=== PATIENT | female | born 1950 | race Caucasian/White ===

== ENCOUNTER → 2017-08-16 10:34 | Outpatient (CLI) | payer OTHER, SELFPAY ==
--- NOTE | 2017-08-16 10:53 | DI.CT.S_ITS ---
PROCEDURE: CT CHEST ABD PEL W CON INDICATIONS: follow up lymphocytic leukemia b-cell TECHNIQUE: After the administration of oral and intravenous contrast, 5 mm thick sections acquired from the lung apices to the symphysis. 5 mm coronal and sagittal reformats were performed, with additional 7 mm coronal MIP reformats through the lungs. For radiation dose reduction, the following was used: automated exposure control, adjustment of mA and/or kV according to patient size. COMPARISON: [facility], CT, CT SOFT TISSUE NECK W CON, 08/16/2017, 11:35. There is no prior CT examinations are available for review at the time of this dictation an5 FINDINGS: Image quality: Excellent. CHEST: Lungs and pleura: No acute airspace opacities. No pleural effusions or pneumothorax. Central and peripheral airways appear patent and normal in caliber. Mediastinum: Heart size is normal. No pericardial effusion. No mediastinal or hilar adenopathy by size criteria. Thoracic aorta and central pulmonary arteries are normal in size. Esophagus is normal in caliber. No hiatal hernia. Chest wall: No enlarged supraclavicular lymph nodes are seen. There is a borderline prominent with left axillary lymph node measuring 9 mm in short axis, as on series 2 image 19. Thyroid gland demonstrates no significant CT abnormality. ABDOMEN: Solid organs: Liver is normal in size and enhancement. Gallbladder is partially collapsed at the time of this study. Biliary system is non dilated. Pancreas enhances normally. The spleen is mildly enlarged, measuring 13.9 cm in greatest craniocaudal dimension. No focal splenic lesions are seen. No adrenal nodules. Kidneys demonstrate normal size and enhancement. There is mild to moderate right-sided hydronephrosis and hydroureter. Because of hydronephrosis and hydroureter is not identified. Nonobstructing right-sided kidneys stones are seen that measure up to 4 mm. Peritoneum and bowel: Bowel loops demonstrate normal wall thickness and caliber. No free fluid or air. Nodes and vessels: No retroperitoneal or mesenteric adenopathy by size criteria. Aorta and inferior vena cava are normal in size. Prominence of both canal veins can be seen. Miscellaneous: No ventral hernias. PELVIS: Genitourinary: Bladder wall thickness is normal. Miscellaneous: No inguinal hernias or adenopathy. Bones: No suspicious bony lesions. No vertebral body compression fractures. Bilateral L5 pars defects are seen, with grade 1/2 anterolisthesis at L5-S1. Moderate to severe loss of disc height is seen at L5-S1, with associated remodeling change. IMPRESSION: No enlarged lymph nodes are seen, although a borderline prominent right axillary lymph node can be seen. Mild splenomegaly is seen. [id number] right-sided hydronephrosis and hydroureter. A cause of this process is not seen. Incidental note is made of: Right kidney nonobstructing kidney stones, measuring up to 4 mm. L5 pars defects, with associated grade 1/2 anterolisthesis at L5-S1, with moderate to severe loss of disc height and remodeling changes. Prominent gonadal veins Dictated by: Esteban Tucker M.D. on 08/16/2017 at 11:54 Approved by: Esteban Tucker M.D. on 08/16/2017 at 12:06
[2017-08-16 11:01] LABS: Hematocrit 37.9 % (36-46); Mean Corpuscular HGB Conc 31.7 % (30-36); Platelet Count 129 X10^3/uL (150-400); Red Blood Cell Count 3.87 X10^6/uL (4.0-5.2); Red Cell Distribution Width 14.6 % (11.6-14.8)
[2017-08-16 11:07] LABS: Alanine Aminotransferase 30 IU/L (9-52); Albumin 4.3 g/dL (3.5-5.0); Alkaline Phosphatase 51 U/L (38-126); Aspartate Aminotransferase 30 IU/L (14-36); BUN Creatinine Ratio 31.7 (6-22); Bilirubin Total 0.4 mg/dL (0.2-1.3); Blood Urea Nitrogen 19 mg/dL (7-17); Calcium 9.1 mg/dL (8.4-10.2); Carbon Dioxide 30 mmol/L (22-32); Chloride 105 mmol/L (98-107); Estimated Glomerular Filt Rate > 60.0 mL/min (>60); Globulin 2.1 g/dL (1.7-4.1); Glucose 75 mg/dL (80-110); HEMOLYSIS < 15 (0-50); Potassium 5.1 mmol/L (3.4-5.1); Sodium 143 mmol/L (137-145); Total Protein 6.4 g/dL (6.3-8.2)
[2017-08-16 11:13] LABS: Add Manual Diff / Slide Review YES; White Blood Cell Count 94.8 X10^3/uL (4.5-11.0)
--- NOTE | 2017-08-16 11:13 | PC.NURSE ---
cv wbc 94.8 per alsi, results to triage
--- NOTE | 2017-08-16 11:46 | PC.NURSE ---
Critical value WBC 94.1 noted. Pt sees Corine on 08/19. Lab results placed in Corine's box for review.
--- NOTE | 2017-08-16 11:51 | DI.CT.S_ITS ---
PROCEDURE: CT SOFT TISSUE NECK W CON INDICATIONS: lymphocytic leukemia follow up TECHNIQUE: After the administration of intravenous contrast, 3.0 mm axial sections acquired from the sella to the aortic arch. Additional oblique axial 3.0 mm sections acquired through the pharynx. 3 mm thick coronal and sagittal reformats were generated. For radiation dose reduction, the following was used: automated exposure control. COMPARISON: [facility], CT, HEAD W&WO CONTRAST, 05/29/2015, 15:01. [facility], CT, CT CHEST ABD PEL W CON, 08/16/2017, 11:35. No prior neck CT examinations are available for review at the time of this dictation. FINDINGS: Image quality: Excellent. Lymph nodes: Numerous mildly enlarged lymph nodes are seen throughout the neck. The largest solitary lymph node is seen on the right at level IIA measuring 13 x 10 mm in greatest axial dimension. Vessels: Visualized vasculature appears patent. Neck spaces: The oropharynx, nasopharynx, and pharynx demonstrate no mucosal lesions. The vocal cords, false vocal cords, pyriform sinuses, epiglottis, vallecula, and tongue base all appear normal. Extramucosal spaces appear unremarkable. Glands: The parotid and submandibular glands appear normal. Thyroid gland demonstrates no significant CT abnormality. Miscellaneous: Visualized brain and orbits appear normal. Lung apices appear clear. Superficial soft tissues appear normal. Bones: No suspicious bony lesions. Visualized sinuses and mastoids appear unremarkable. Degenerative changes are seen throughout, which are most prominent involving the lower cervical spine. IMPRESSION: Innumerable mildly enlarged lymph nodes are seen throughout the neck. The largest solitary lymph node can be seen within the right neck at level IIA, which measures up to 10 mm in short axis. The imaging findings are compatible with the given clinical history of leukemia. Dictated by: Esteban Tucker M.D. on 08/16/2017 at 13:13 Approved by: Esteban Tucker M.D. on 08/16/2017 at 13:16
[2017-08-16 13:45] LABS: Neutrophils Absolute Manual 1896 /uL (3000-5900); Reactive Lymphocytes 2+; Total Cells Counted 100
[2017-08-16 13:46] LABS: Smudge Cells 4+
== END ==
PROVIDERS: Family Provider Physician Assistant; PCP Physician Assistant; Visit Provider Nurse Practitioner Gerontology
DX: R59.1 Generalized enlarged lymph nodes (principal); C91.Z0 Other lymphoid leukemia not having achieved remission; R16.1 Splenomegaly, not elsewhere classified; N13.30 Unspecified hydronephrosis; N20.0 Calculus of kidney
CPT/HCPCS: 36415; 70491; 71260; 74177; 80053; 85025; Q9967

== ENCOUNTER 2017-11-04 11:30 | Oncology outpatient (ONC) | payer OTHER, SELFPAY ==
--- NOTE | 2017-08-19 12:48 | ONC.APRN.PN ---
Assessment and Plan (1) CLL (chronic lymphocytic leukemia) Current visit: No Status: Chronic 08/19/17 16:47 Lupis is a 67-year-old female whom we follow for a diagnosis of CLL in clinical surveillance for more than 2 years. Good prognostic indicator with 13q deletion. Clinically she has no signs or symptoms of disease progression. CT scan of chest abdomen pelvis August 16, 2017 demonstrated mildly enlarged spleen at 13.9cm. No previous scans for comparison. Soft tissue neck CT august 16 2017 demonstrated mildly enlarged lymph node throughout the neck, largest measuring [id number]. Also no comparison however historically on previous exams she has had palpable lymph nodes in her neck. Per patient report these have not changed whatsoever in size, she states they tend to come and go. The patient is quite thin, easy to examine. Today her submanidibular nodes were palpable, symmetric, nontender, soft, freely moveable. Very consistent with previous exams. Patient has no red flag symptoms. I will have her return in 3 months time for repeat exam cbc cmp LDH. Continue to monitor for palpable splenomegaly. CBC is within the patient's baseline [place] [address] improved from previous , has been in the low 100,000's. Lymphocytes 97%, platelets 129,000.CMP unremarkable, LDH was not procured we will repeat next visit i have ordered LDH in computer. 08/19/17 16:50 - Time Spent with Patient 35 mins PN -Subjective Interval history: The patient is a 67 year old Female who is being seen in the clinic 08/19/2017 She carries a diagnosis of chronic lymphocytic leukemia in surveillance only since her diagnosis was made in June 2015. Patient has a deletion 13q which is a good prognostic indicator. Patient presents today for her 3 month clinical evaluation. She had surveillance CT scan of neck, chest, abdomen, pelvis August 16, 2017 which did not demonstrate any evidence of disease progression although spleen was mildly enlarged at 13.9cm. No prior imaging available. She does have chronically mildly enlarged lymph nodes on exam, also demonstrated on soft tissue neck CT with the largest measuring 10 mm. Historically these have also been palpable on exam. Patient has no new complaints whatsoever on exam today. She does check her lymph nodes she states they go up and down, they get a bit bigger with a cold or sinus infection but go right back down. She has not had any recent or recurrent illnesses or infections. No change in appetite specifically no early satiety. No unexplained bleeding or bruising. No change with activity tolerance. She denies night sweats. Bowel and bladder habits are unchanged. No new pain, no new lumps or bumps. Chronic dizziness for the past few years is unchanged, she now uses walking sticks when exercising which has been helpful. TIMELINE: She was diagnosed in June 2015 after presenting with an acute illness with vertigo and upper respiratory symptoms discovered to have an elevated lymphocyte count of 118,000 with 75% mature lymphocytes, 19% atypical lymphocytes with thrombocytopenia 135,000 AB 0; one baby shortly after 6 healthy adult children she sanders surgery on her gingiva varicose vein surgery episiotomy history of tubal ligation she reports a history of sleep apnea; not using CPAP. Home Medications and Allergies Home Medications Medication Instructions Recorded Confirmed Type magnesium oxide 400 mg PO #0 10/31/15 07/02/17 History ACETAMINOPHEN 325 mg PO PRN PRN #0 07/06/16 07/02/17 History VITAMIN D (Vitamin D3) 1,000 unit PO QDAY #0 07/06/16 07/02/17 History biotin 5,000 mcg PO QDAY #0 05/19/17 07/02/17 History vitamin B complex [B 1 tab PO QDAY #0 05/19/17 07/02/17 History Complex-Vitamin B12] [Tetanus/Diptheria] 1 ea #0 06/23/17 07/02/17 Rx Allergies Allergy/AdvReac Type Severity Reaction Status Date / Time Sulfa (Sulfonamide Allergy Unknown Verified 07/02/17 10:06 Antibiotics) [SULFA (SULFONAMIDE ANTIBIOTICS)] soy Allergy Abdominal Verified 07/02/17 10:06 Pain Exam Narrative: well appearing - Constitutional positive no acute distress, positive thin - Routine HEENT Exam Head: Present: normocephalic, atraumatic Eye: Present: conjunctivae pink. Absent: conjunctival icterus, scleral injection ENT: Present: mucous membranes moist - Routine Neck Exam Present: supple, lymphadenopathy Comments: pt is thin very easy to examine. Submandibular nodes are palpable, soft, freely moveable, symmetric. Very small, not alarming in a thin easy to examine pt correlates with previous exams. Unable to palpate parotid, submental, cervical lymph nodes. - Routine Chest/Breast/Axilla Exam Chest wall exam standard: Absent: tenderness, mass Axillae: Absent: lymphadenopathy, mass, tenderness - Routine Respiratory Exam Present: Clear to auscultation bilaterally. Absent: rales, rhonchi, wheezes - Routine Cardiovascular Exam Present: RRR, S1, S2 - Routine Abdominal Exam Present: soft, normoactive bowel sounds. Absent: tenderness, distended, organomegaly, mass Palpation/Percussion: Absent: splenomegaly, dullness to percussion Comments: spleen not palpable on exam today - Routine Extremities Exam Absent: edema, calf tenderness - Routine Skin Exam Present: intact, normal turgor. Absent: petechiae, rash - Routine Neurological Exam Present: alert, oriented X3 - Routine Psychiatric Exam Present: normal affect
[2017-08-19 14:28] VITALS: BP 134/68; PULSE 67; RESP 18; TEMP 36.3; O2SAT 98
[2017-11-04 11:08] LABS: Hematocrit 40.4 % (36-46); Hemoglobin 12.9 g/dL (12.0-16.0); Mean Corpuscular HGB Conc 31.9 % (30-36); Mean Corpuscular Hemoglobin 31.1 PG (26-34); Mean Corpuscular Volume 97.3 fL (80-100); Platelet Count 121 X10^3/uL (150-400); Red Blood Cell Count 4.15 X10^6/uL (4.0-5.2); Red Cell Distribution Width 14.2 % (11.6-14.8)
[2017-11-04 11:12] LABS: Lactate Dehydrogenase 516 U/L (313-618)
[2017-11-04 11:14] LABS: Add Manual Diff / Slide Review YES; Alanine Aminotransferase 28 IU/L (9-52); Albumin 4.4 g/dL (3.5-5.0); Albumin Globulin Ratio 2.3 (1.0-2.8); Alkaline Phosphatase 47 U/L (38-126); Aspartate Aminotransferase 29 IU/L (14-36); BUN Creatinine Ratio 26.7 (6-22); Bilirubin Total 0.4 mg/dL (0.2-1.3); Blood Urea Nitrogen 16 mg/dL (7-17); Calcium 9.2 mg/dL (8.4-10.2); Carbon Dioxide 32 mmol/L (22-32); Chloride 107 mmol/L (98-107); Estimated Glomerular Filt Rate > 60.0 mL/min (>60); Globulin 1.9 g/dL (1.7-4.1); Glucose 71 mg/dL (80-110); HEMOLYSIS < 15 (0-50); Potassium 5.2 mmol/L (3.4-5.1); Sodium 145 mmol/L (137-145); Total Protein 6.3 g/dL (6.3-8.2); White Blood Cell Count 92.1 X10^3/uL (4.5-11.0)
[2017-11-04 11:47] VITALS: BP 130/78; PULSE 65; RESP 18; TEMP 36.5; O2SAT 100
[2017-11-04 11:49] LABS: Neutrophils Absolute Manual 4605 /uL (3000-5900); Total Cells Counted 100
[2017-11-04 11:50] LABS: Macrocytosis 1+
[2017-11-04 12:00] LABS: Smudge Cells 3+
[2017-11-04 12:01] LABS: Reactive Lymphocytes 2+
--- NOTE | 2017-11-04 12:32 | ONC.APRN.PN ---
Assessment and Plan (1) CLL (chronic lymphocytic leukemia) Current visit: No Status: Chronic 11/04/17 12:37 The patient is a 67 year old Female who is being seen in the clinic 11/04/2017 She carries a diagnosis of chronic lymphocytic leukemia in surveillance only since her diagnosis was made in June 2015. Patient has a deletion 13q which is a good prognostic indicator. Surveillance CT scan of neck, chest, abdomen, pelvis August 16, 2017 which did not demonstrate any evidence of disease although spleen was mildly enlarged at 13.9cm. Pt has had mildly enlarged cervical lymph nodes for years, they come and go these nodes were previously identified on imaging soft tisue neck CT 08/16/2017 with the largest measuring 10mm. the pts previous visit she did have palpable cervical lymph nodes, today I did not palpate any lymphadenopathy. Spleen was palpable on exam today however pt is quite slim, very easy to examine. CBC, CMP stable. WBC 92, previous visit 94, historically pt WBC elevated in the low 100's. No recent or recurrent illnesses or infections. Overall the patient is feeling quite well. I would like the patient to return in about 3 months time to establish with 1 of our new oncologist we will also check CBC, CMP. 11/04/17 12:37 11/04/17 12:38 - Time Spent with Patient 30 mins PN -Subjective Interval history: The patient is a 67 year old Female who is being seen in the clinic 11/04/2017 She carries a diagnosis of chronic lymphocytic leukemia in surveillance only since her diagnosis was made in June 2015. Patient has a deletion 13q which is a good prognostic indicator. Patient presents today for her 3 month clinical evaluation. She had surveillance CT scan of neck, chest, abdomen, pelvis August 16, 2017 which did not demonstrate any evidence of disease progression although spleen was mildly enlarged at 13.9cm. No prior imaging available. She does have chronically mildly enlarged lymph nodes on exam, also demonstrated on soft tissue neck CT with the largest measuring 10 mm. Historically these have also been palpable on exam. Patient reports she has been able to feel the lymph nodes in my neck since [id number] when we were living in [place] I thought it was my sinuses. Patient has no new complaints whatsoever on exam today. She does check her lymph nodes she states they go up and down, they get a bit bigger with a cold or sinus infection but go right back down. She has not had any recent or recurrent illnesses or infections. No change in appetite specifically no early satiety. No unexplained bleeding or bruising. No change with activity tolerance. She denies night sweats. Bowel and bladder habits are unchanged. No new pain, no new lumps or bumps. Chronic dizziness for the past few years is unchanged, she now uses walking sticks when exercising which has been helpful. TIMELINE: She was diagnosed in June 2015 after presenting with an acute illness with vertigo and upper respiratory symptoms discovered to have an elevated lymphocyte count of 118,000 with 75% mature lymphocytes, 19% atypical lymphocytes with thrombocytopenia 135,000 AB 0; one baby shortly after 6 healthy adult children she sanders surgery on her gingiva varicose vein surgery episiotomy history of tubal ligation she reports a history of sleep apnea; not using CPAP. Results - Labs Laboratory Last Values WBC 92.1 X10^3/uL (4.5-11.0) H* 11/04/17 10:52 RBC 4.15 X10^6/uL (4.0-5.2) 11/04/17 10:52 Hgb 12.9 g/dL (12.0-16.0) 11/04/17 10:52 Hct 40.4 % (36-46) 11/04/17 10:52 MCV 97.3 fL (80-100) 11/04/17 10:52 MCH 31.1 PG (26-34) 11/04/17 10:52 MCHC 31.9 % (30-36) 11/04/17 10:52 RDW 14.2 % (11.6-14.8) 11/04/17 10:52 Plt Count 121 X10^3/uL (150-400) L 11/04/17 10:52 Neut % (Auto) Not Reportable 11/04/17 10:52 Lymph % (Auto) Not Reportable 11/04/17 10:52 Duval % (Auto) Not Reportable 11/04/17 10:52 Eos % (Auto) Not Reportable 11/04/17 10:52 Baso % (Auto) Not Reportable 11/04/17 10:52 Total Counted 100 11/04/17 10:52 Seg Neutrophils % 4.0 % (38-70) L 11/04/17 10:52 Band Neutrophils % 1.0 % (3-7) L 11/04/17 10:52 Lymphocytes % (Manual) 93.0 % (25-45) H 11/04/17 10:52 Monocytes % (Manual) 2.0 % (2-11) 11/04/17 10:52 Neutrophils # (Manual) 4605 /uL (5245-7610) 11/04/17 10:52 Reactive Lymphocytes 2+ H 11/04/17 10:52 Smudge Cells 3+ H 11/04/17 10:52 RBC Morphology Not Reportable 11/04/17 10:52 Macrocytosis 1+ H 11/04/17 10:52 Sodium 145 mmol/L (137-145) 11/04/17 10:52 Potassium 5.2 mmol/L (3.4-5.1) H 11/04/17 10:52 Chloride 107 mmol/L (98-107) 11/04/17 10:52 Carbon Dioxide 32 mmol/L (22-32) 11/04/17 10:52 BUN 16 mg/dL (7-17) 11/04/17 10:52 Creatinine 0.60 mg/dL (0.52-1.04) 11/04/17 10:52 Estimated GFR > 60.0 mL/min (>60) 11/04/17 10:52 BUN/Creatinine Ratio 26.7 (6-22) H 11/04/17 10:52 Glucose 71 mg/dL (80-110) L 11/04/17 10:52 Calcium 9.2 mg/dL (8.4-10.2) 11/04/17 10:52 Total Bilirubin 0.4 mg/dL (0.2-1.3) 11/04/17 10:52 AST 29 IU/L (14-36) 11/04/17 10:52 ALT 28 IU/L (9-52) 11/04/17 10:52 Alkaline Phosphatase 47 U/L (38-126) 11/04/17 10:52 Lactate Dehydrogenase 516 U/L (313-618) 11/04/17 10:52 Total Protein 6.3 g/dL (6.3-8.2) 11/04/17 10:52 Albumin 4.4 g/dL (3.5-5.0) 11/04/17 10:52 Globulin 1.9 g/dL (1.7-4.1) 11/04/17 10:52 Albumin/Globulin Ratio 2.3 (1.0-2.8) 11/04/17 10:52 Home Medications and Allergies Home Medications Medication Instructions Recorded Confirmed Type magnesium oxide 400 mg PO #0 10/31/15 07/02/17 History ACETAMINOPHEN 325 mg PO PRN PRN #0 07/06/16 07/02/17 History VITAMIN D (Vitamin D3) 1,000 unit PO QDAY #0 07/06/16 07/02/17 History biotin 5,000 mcg PO QDAY #0 05/19/17 07/02/17 History vitamin B complex [B 1 tab PO QDAY #0 05/19/17 07/02/17 History Complex-Vitamin B12] [Tetanus/Diptheria] 1 ea #0 06/23/17 07/02/17 Rx Allergies Allergy/AdvReac Type Severity Reaction Status Date / Time Sulfa (Sulfonamide Allergy Unknown Verified 07/02/17 10:06 Antibiotics) [SULFA (SULFONAMIDE ANTIBIOTICS)] soy Allergy Abdominal Verified 07/02/17 10:06 Pain Exam Vital signs: Last Vital Signs Temp 97.7 F 11/04/17 11:47 Pulse 65 11/04/17 11:47 Resp 18 11/04/17 11:47 BP 130/78 11/04/17 11:47 Pulse Ox 100 11/04/17 11:47 - Constitutional positive no acute distress, positive thin - Routine HEENT Exam Eye: Present: conjunctivae pink. Absent: conjunctival icterus, scleral injection ENT: Present: mucous membranes moist, oropharynx clear - Routine Neck Exam Present: supple. Absent: lymphadenopathy Comments: no palpable lymphadenopathy on exam today - Routine Chest/Breast/Axilla Exam Axillae: Absent: lymphadenopathy, mass, tenderness - Routine Respiratory Exam Present: Clear to auscultation bilaterally. Absent: rales, rhonchi, wheezes - Routine Cardiovascular Exam Present: RRR. Absent: S1, S2, murmur, gallop, rubs, JVD - Routine Abdominal Exam Present: soft, normoactive bowel sounds. Absent: tenderness, distended, mass Palpation/Percussion: Present: splenomegaly Comments: spleen palpable just below costophrenic angle. Pt very slender, easy to examine - Routine Extremities Exam Absent: edema, calf tenderness - Routine Skin Exam Present: intact, normal turgor. Absent: petechiae, rash - Routine Neurological Exam Present: alert, oriented X3 - Routine Psychiatric Exam Present: normal affect
== END 2017-11-16 14:49 ==
PROVIDERS: Family Provider Physician Assistant; PCP Physician Assistant; Visit Provider Nurse Practitioner Gerontology
DX: C91.10 Chronic lymphocytic leukemia of B-cell type not having achieved remission (principal)
CPT/HCPCS: 36415; 80053; 83615; 85025; 99214

== ENCOUNTER → 2018-03-11 10:52 | Outpatient (CLI) | payer OTHER, SELFPAY ==
[2018-03-11 11:09] LABS: Hematocrit 39.6 % (36-46); Hemoglobin 12.4 g/dL (12.0-16.0); Mean Corpuscular HGB Conc 31.3 % (30-36); Mean Corpuscular Hemoglobin 30.9 PG (26-34); Mean Corpuscular Volume 98.7 fL (80-100); Platelet Count 121 X10^3/uL (150-400); Red Blood Cell Count 4.01 X10^6/uL (4.0-5.2); Red Cell Distribution Width 14.2 % (11.6-14.8)
[2018-03-11 11:12] LABS: Add Manual Diff / Slide Review YES; White Blood Cell Count 124.3 X10^3/uL (4.5-11.0)
[2018-03-11 11:22] LABS: Neutrophils Absolute Manual 6215 /uL (3000-5900); Total Cells Counted 100
[2018-03-11 11:24] LABS: RBC Morphology Normal Morphology; Smudge Cells 3+
[2018-03-11 11:29] LABS: Alanine Aminotransferase 32 IU/L (9-52); Albumin 4.3 g/dL (3.5-5.0); Alkaline Phosphatase 50 U/L (38-126); Aspartate Aminotransferase 37 IU/L (14-36); BUN Creatinine Ratio 33.3 (6-22); Bilirubin Total 0.3 mg/dL (0.2-1.3); Blood Urea Nitrogen 20 mg/dL (7-17); Calcium 9.3 mg/dL (8.4-10.2); Carbon Dioxide 29 mmol/L (22-32); Chloride 106 mmol/L (98-107); Estimated Glomerular Filt Rate > 60.0 mL/min (>60); Globulin 2.1 g/dL (1.7-4.1); Glucose 74 mg/dL (80-110); HEMOLYSIS < 15 (0-50); Sodium 141 mmol/L (137-145); Total Protein 6.4 g/dL (6.3-8.2)
--- NOTE | 2018-03-11 11:52 | PC.NURSE ---
WBC elevated to 124.3 This is up from prior visit which was in the upper 90's. Pt schd to see provider on 03/15
== END ==
PROVIDERS: Visit Provider Nurse Practitioner Gerontology
DX: C91.10 Chronic lymphocytic leukemia of B-cell type not having achieved remission (principal)
CPT/HCPCS: 36415; 80053; 85025

== ENCOUNTER → 2018-07-08 11:31 | Outpatient (CLI) | payer OTHER, SELFPAY ==
[2018-07-10 17:24] LABS: Fecal Immunochemical Test NOT DETECTED (NOT DETECTED)
== END ==
PROVIDERS: PCP Physician Assistant; Visit Provider Physician Assistant
DX: Z12.11 Encounter for screening for malignant neoplasm of colon (principal)
CPT/HCPCS: 82274

== ENCOUNTER → 2019-03-16 12:23 | Outpatient (CLI) | payer MEDICARE, SELFPAY ==
[2019-03-16 12:46] LABS: Hematocrit 40.8 % (36-46); Hemoglobin 13.1 g/dL (12.0-16.0); Mean Corpuscular HGB Conc 32.2 % (30-36); Mean Corpuscular Hemoglobin 31.3 PG (26-34); Mean Corpuscular Volume 97.2 fL (80-100); Platelet Count 101 X10^3/uL (150-400); Red Cell Distribution Width 14.2 % (11.6-14.8)
[2019-03-16 12:47] LABS: Add Manual Diff / Slide Review YES
[2019-03-16 12:48] LABS: White Blood Cell Count 113.1 X10^3/uL (4.5-11.0)
[2019-03-16 12:55] LABS: Alanine Aminotransferase 19 IU/L (<35); Albumin 4.7 g/dL (3.5-5.0); Albumin Globulin Ratio 2.1 (1.0-2.8); Alkaline Phosphatase 59 U/L (38-126); Aspartate Aminotransferase 31 IU/L (14-36); BUN Creatinine Ratio 36.7 (6-22); Bilirubin Total 0.4 mg/dL (0.2-1.3); Blood Urea Nitrogen 22 mg/dL (7-17); Calcium 9.6 mg/dL (8.4-10.2); Carbon Dioxide 30 mmol/L (22-32); Chloride 102 mmol/L (98-107); Estimated Glomerular Filt Rate > 60.0 mL/min (>60); Globulin 2.2 g/dL (1.7-4.1); Glucose 78 mg/dL (80-110); HEMOLYSIS < 15 (0-50); Lactate Dehydrogenase 511 U/L (313-618); Potassium 4.7 mmol/L (3.4-5.1); Sodium 140 mmol/L (137-145); Total Protein 6.9 g/dL (6.3-8.2)
[2019-03-16 13:05] LABS: Macrocytosis 1+; Neutrophils Absolute Manual 6786 /uL (3000-5900); Total Cells Counted 100
== END ==
PROVIDERS: PCP Physician Assistant
DX: C91.90 Lymphoid leukemia, unspecified not having achieved remission (principal)
CPT/HCPCS: 36415; 80053; 83615; 85025

== ENCOUNTER → 2020-12-24 09:00 | Outpatient (CLI) | payer OTHER, SELFPAY ==
--- NOTE | 2020-12-24 09:04 | DI.US.S_ITS ---
PROCEDURE: US ABDOMEN COMPLETE INDICATIONS: CLL TECHNIQUE: Real-time scanning was performed of the abdominal and retroperitoneal organs, with image documentation. COMPARISON: None. FINDINGS: Liver: Liver is normal in size and homogeneous in echotexture. Gallbladder: There is an approximately 5 millimeter polyp in the anterior gallbladder wall. No sludge or gallstone. No wall thickening or pericholecystic fluid. Negative sonographic Johnson's sign is reported. Biliary ducts: Normal caliber. Pancreas: Visualized portions of the pancreas are sonographically normal. Spleen: Enlarged spleen measuring up to 17 centimeters. Unchanged size of 2 known superior/posterior simple cysts. Kidneys: Kidneys are normal in size and echotexture. Right kidney measures 11.4 cm long; left kidney measures 11.8 cm long. No hydronephrosis or nephrolithiasis. No solid masses. Aorta: Visualized aorta is normal in caliber at less than 3 cm. Iliacs: Proximal common iliac arteries are normal in caliber at less than 2.5 cm. IVC: Intrahepatic inferior vena cava is patent. Miscellaneous: No free abdominal fluid. IMPRESSION: Splenomegaly. Otherwise unremarkable study. Dictated by: Justin Martin M.D. on 12/24/2020 at 10:03 Approved by: Justin Martin M.D. on 12/24/2020 at 10:04
== END ==
PROVIDERS: PCP Internal Medicine; Referring Provider Internal Medicine Hematology & Oncology; Visit Provider Internal Medicine Hematology & Oncology
DX: C91.90 Lymphoid leukemia, unspecified not having achieved remission (principal); R16.1 Splenomegaly, not elsewhere classified
CPT/HCPCS: 76700

== ENCOUNTER → 2021-02-10 09:48 | Outpatient (CLI) | payer OTHER, SELFPAY ==
[2021-02-10 12:33] LABS: COVID19 -Nasal RAPID Negative (Negative)
== END ==
PROVIDERS: PCP Internal Medicine; Visit Provider Nurse Practitioner Family
DX: Z20.822 Contact with and (suspected) exposure to COVID-19 (principal)
CPT/HCPCS: 87635

== ENCOUNTER 2021-02-11 07:15 | Day surgery (SDC) | payer OTHER, SELFPAY ==
[2021-02-11 07:34] VITALS: BP 129/67; PULSE 63; RESP 20; TEMP 36.6; O2SAT 98
[2021-02-11] MEDS: SODIUM CHLORIDE 0.9% 1,000 ML 84 ML IV (07:43)
--- NOTE | 2021-02-11 07:55 | PM.HP.1 ---
History of Present Illness History of Present Illness Date Patient Seen: 02/11/21 Time Patient Seen: 07:56 Chief complaint: SCREENING COLONOSCOPY Patient History Family & Social History Social History: household members spouse Tobacco & Substance use: Smoking Status Never smoker alcohol intake never Substance Use Type does not use Meds Home Medications and Allergies Home Medications Medication Instructions Recorded Confirmed Type acetaminophen 325 mg tablet 650 mg PO Q4H #0 07/06/16 02/11/21 History (Tylenol) biotin 2,500 mcg capsule 5,000 mcg PO QDAY #0 05/19/17 02/11/21 History vitamin B complex (B 1 tab PO QDAY #0 05/19/17 02/11/21 History Complex-Vitamin B12) [Tetanus/Diptheria] 1 ea #0 06/23/17 07/02/17 Rx calcium carbonate 500 mg (1,250 1 tab PO BID 03/15/18 02/11/21 History mg)-vitamin D3 125 unit tablet (Calcium 500 + D (D3)) turmeric 400 mg capsule 400 mg DAILY 08/30/18 02/11/21 History acalabrutinib 100 mg capsule 100 mg PO Q12H #60 cap 01/06/21 02/11/21 Rx Adult One Daily Multivitamin 01/14/21 History L.acidop,casei,lactis,rham-B.lact,glen 1 cap PO DAILY 01/14/21 02/11/21 History 625 mg (10 billion cell) capsule (Advanced Probiotic) lysine 500 mg tablet (L-Lysine) 500 mg PO DAILY 01/14/21 02/11/21 History magnesium glycinate 100 mg tablet 100 mg PO DAILY 01/14/21 02/11/21 History vitamin B complex 1 cap PO DAILY 01/14/21 02/11/21 History Allergies Allergy/AdvReac Type Severity Reaction Status Date / Time Sulfa (Sulfonamide Allergy Unknown Verified 02/11/21 07:29 Antibiotics) [SULFA (SULFONAMIDE ANTIBIOTICS)] soy Allergy Abdominal Verified 02/11/21 07:29 Pain Review of Systems Review of Systems ROS: Yes All systems reviewed with the patient and are negative except as otherwise documented Exam Vital Signs (past 8 hours): - 02/11/21 07:34 Temperature 98 F Pulse Rate 63 Respiratory Rate 20 Blood Pressure 129/67 Pulse Oximetry 98 Oxygen Delivery Method Room Air Const General: cooperative and comfortable Orientation: alert HENMT Head: normocephalic Ears: external ears normal Nose: external nose normal Face and sinus: normal facial exam Mouth: oral mucosae normal Eyes General: appearance normal, both eyes and all related structures Neck Neck: normal visual inspection Chest Chest: normal inspection of the chest Resp Effort & Inspection: normal respiratory effort Cardio Rate: regular rate GI Inspection: normal to inspection Skin General: no rashes or lesions noted and No jaundice Neuro General: patient alert and moves all extremities Cognition: normal cognition Speech: speech normal Extrem General: no pedal edema Psych Appearance: grossly normal Assessment & Plan Assessment & Plan narrative: 71-year-old female indicated for colon cancer screening. Colonoscopy is planned for today. Time Spent With Patient Critical Care time: I spent a total of [] minutes of critical care time on this patient's care today; this time is exclusive of procedural time.
--- NOTE | 2021-02-11 07:57 | PM.PREOP ---
Pre-operative Note COVID-19 COVID-19 status: Negative Result date/Date tested (Pos, Neg/Pending): 02/10/21 Interval Note History & Physical reviewed/Exam performed by Physician: Yes Changes to H&P: No ASA Class (for procedural sedation): II
--- NOTE | 2021-02-11 08:52 | P.OP.COLON_ITS ---
Operative Date/Time/Diagnoses Date of procedure: 02/11/21 Time of procedure: 08:52 Pre-op diagnosis: Colon cancer screening Post-op diagnosis: same Procedure & Clinicians Study performed: Colonoscopy Same procedure as scheduled: Yes Indications: Screening Surgeon: Norm Thakkar Procedure Notes SCOAP/Timeout: Done Procedure in detail: After the risks and benefits were explained, written and verbal informed consent was obtained. The patient was brought into the procedure room and placed into the left lateral decubitus position. Please see nurse photographic process worker notes for sedation details. Digital rectal examination was accomplished. The scope was introduced into the patient and advanced under direct visualization to the cecum as identified by the appendiceal orifice and ileocecal valve. The scope was slowly withdrawn to carefully examine the mucosa for any defects or lesions. Comprehensive imaging was accomplished throughout the rectum including the dentate line. The colon was decompressed, the scope was then removed from the patient who tolerated the procedure well. Bowel prep adequate Pediatric colonoscope Scope withdrawal time: 8 minutes Sedation minutes: 21 Specimen(s): none sent Complications: none Impression: Patient had a rather tortuous colon. Medication was somewhat challenging. No significant polyps mass lesions or inflammatory features identified throughout. Endoscopic diagnosis Visually unremarkable colonoscopy to cecum Post-procedure Recommendations: Colonoscopy in 10 years Plan for aftercare: Consider repeat colonoscopy 10 years time; sooner should symptoms warrant an earlier exam. Disposition: PACU
[2021-02-11 08:54] VITALS: BP 97/49; PULSE 65; RESP 15; TEMP 36.3; O2SAT 97
[2021-02-11 08:59] VITALS: BP 104/53; PULSE 58; RESP 16; O2SAT 97
[2021-02-11 09:05] VITALS: BP 118/80; PULSE 60; RESP 118; O2SAT 97
[2021-02-11 09:10] VITALS: BP 135/72; PULSE 65; RESP 14; TEMP 36.5; O2SAT 98
[2021-02-11 09:15] VITALS: BP 105/38; PULSE 60; RESP 12; TEMP 36.4; O2SAT 98
== END 2021-02-11 09:30 | disposition home or self-care (01) ==
PROVIDERS: PCP Internal Medicine; Referring Provider Internal Medicine Gastroenterology; Visit Provider Internal Medicine Gastroenterology
PROC: 0DJD8ZZ Inspection of Lower Intestinal Tract, Via Natural or Artificial Opening Endoscopic (ICD-10-PCS; CPT 45378; principal; 2021-02-11 08:30)
DX: Z12.11 Encounter for screening for malignant neoplasm of colon (principal)
CPT/HCPCS: G0121; J2704

== ENCOUNTER → 2021-02-14 11:11 | Outpatient (CLI) | payer OTHER, SELFPAY ==
--- NOTE | 2021-02-14 | DI.MG.S_ITS ---
BILATERAL DIGITAL SCREENING MAMMOGRAM 3D/2D WITH CAD: 02/14/2021 CLINICAL: Routine screening. Comparison is made to exam dated: 11/25/2015 [facility]. The tissue of both breasts is heterogeneously dense. This may lower the sensitivity of mammography. Current study was also evaluated with a Computer Aided Detection (CAD) system. No significant masses, calcifications, or other findings are seen in either breast. There has been no significant interval change. IMPRESSION: NEGATIVE There is no mammographic evidence of malignancy. A 1 year screening mammogram is recommended. This exam was interpreted at Station ID: [id number]. NOTE: For mammograms, a report in lay terms will be sent to the patient. Approximately 15% of breast malignancies will not be visualized mammographically. In the management of a palpable breast mass, a negative mammogram must not discourage biopsy of a clinically suspicious lesion. Electronically Signed By: Eddie vega/[email or web address]:02/14/2021 13:03:49 letter sent: Normal Exam ACR BI-RADS Category 1: Negative 3341F
== END ==
PROVIDERS: PCP Internal Medicine; Referring Provider Internal Medicine; Visit Provider Internal Medicine
DX: Z12.31 Encounter for screening mammogram for malignant neoplasm of breast (principal)
CPT/HCPCS: 77063; 77067

== ENCOUNTER → 2021-10-10 11:02 | Outpatient (CLI) | payer OTHER, SELFPAY | PROVIDERS: PCP Internal Medicine; Referring Provider Internal Medicine; Visit Provider Internal Medicine | DX: Z78.0 Asymptomatic menopausal state (principal); Z13.820 Encounter for screening for osteoporosis; M81.0 Age-related osteoporosis without current pathological fracture; C91.10 Chronic lymphocytic leukemia of B-cell type not having achieved remission; E21.3 Hyperparathyroidism, unspecified | CPT/HCPCS: 77080 ==

== ENCOUNTER → 2022-02-12 12:11 | Outpatient (CLI) | payer OTHER, SELFPAY ==
--- NOTE | 2022-02-12 12:16 | DI.US.S_ITS ---
PROCEDURE: US PELVIC COMPLETE INDICATIONS: Pelvic and perineal pain TECHNIQUE: Real-time scanning was performed of the pelvic organs, with image documentation. Additional endovaginal scanning was necessary due to incomplete visualization of the adnexal and endometrial structures by transabdominal scanning. COMPARISON: None. FINDINGS: Uterus: Uterus is anteverted and normal in size at 5.4 x 2.0 x 3.5 cm. The myometrium is homogeneous. The endometrium measures 5 mm combined thickness. Ovaries: The ovaries are not seen. The adnexa appears grossly normal with no masses or fluid. Other: No pathologic free abdominal or pelvic fluid. IMPRESSION: 1. No acute abnormality is identified. 2. The ovaries are not identified. 3. No adnexal abnormality. We strive to produce accurate, complete, and clear reports of imaging services. To assist us in improving patient care, this report was composed using standard report templates and voice recognition software. Therefore, it may contain abnormal punctuation, insertions and/or omissions. Occasional wrong-word or sound-alike substitutions may occur. Though we review the report and make efforts to correct it, we do recommend that the report be read carefully in proper context to recognize any text inaccuracies. Dictated by: Pan Carnes M.D. on 02/13/2022 at 8:40 Approved by: Pan Carnes M.D. on 02/13/2022 at 8:42
== END ==
PROVIDERS: PCP Internal Medicine; Referring Provider Nurse Practitioner; Visit Provider Nurse Practitioner
DX: R10.2 Pelvic and perineal pain (principal)
CPT/HCPCS: 76830; 76856

== ENCOUNTER → 2022-07-09 11:57 | Outpatient (CLI) | payer OTHER, SELFPAY ==
--- NOTE | 2022-07-09 | DI.MG.S_ITS ---
BILATERAL DIGITAL SCREENING MAMMOGRAM 3D/2D WITH CAD: 07/09/2022 CLINICAL: Routine screening. Comparison is made to exams dated: 02/14/2021 mammogram and 11/25/2015 mammogram - [facility]. Both breasts are heterogeneously dense, which may obscure small masses (category c / 51-75% glandular tissue). Current study was also evaluated with a Computer Aided Detection (CAD) system. No significant masses, calcifications, or other findings are seen in either breast. There has been no significant interval change. IMPRESSION: NEGATIVE There is no mammographic evidence of malignancy. A 1 year screening mammogram is recommended. Based on the Tyrer Cuzick model (a risk assessment model) the patient's lifetime risk is 5.1% and her 10 year risk is 3.2%. According to the ACR, ACS, and NCCN guidelines, an annual breast MRI exam along with mammogram is recommended if the patient's lifetime risk is 20% or greater. This exam was interpreted at Station ID: [id number]. NOTE: For mammograms, a report in lay terms will be sent to the patient. Approximately 15% of breast malignancies will not be visualized mammographically. In the management of a palpable breast mass, a negative mammogram must not discourage biopsy of a clinically suspicious lesion. Electronically Signed By: Kendrick murillo/[email or web address]:07/09/2022 14:26:24 letter sent: Normal Exam ACR BI-RADS Category 1: Negative 3341F
== END ==
PROVIDERS: PCP Internal Medicine; Referring Provider Internal Medicine; Visit Provider Internal Medicine
DX: Z12.31 Encounter for screening mammogram for malignant neoplasm of breast (principal)
CPT/HCPCS: 77063; 77067

== ENCOUNTER → 2023-03-31 14:23 | Outpatient (CLI) | payer OTHER, SELFPAY ==
[2023-03-31 15:37] LABS: Add Manual Diff / Slide Review NO; Basophils Absolute Auto 0 /uL (0-100); Basophils Percent Auto 0.2 % (0-2); Eosinophils Absolute Auto 0 /uL (0-450); Eosinophils Percent Auto 0.3 % (2-4); Hematocrit 39.2 % (36-46); Hemoglobin 13.2 g/dL (12.0-16.0); Lymphocytes Absolute Auto 8000 /uL (1100-4500); Lymphocytes Percent Auto 64.5 % (25-40); Mean Corpuscular HGB Conc 33.7 % (30-36); Mean Corpuscular Hemoglobin 31.9 PG (26-34); Mean Corpuscular Volume 94.6 fL (80-100); Monocytes Absolute Auto 700 /uL (0-900); Monocytes Percent Auto 5.8 % (3-14); Neutrophils Absolute Auto 3600 /uL (1500-7000); Neutrophils Percent Auto 29.2 % (50-75); Platelet Count 159 X10^3/uL (150-400); Red Blood Cell Count 4.14 X10^6/uL (4.0-5.2); White Blood Cell Count 12.4 X10^3/uL (4.5-11.0)
[2023-03-31 15:42] LABS: Alanine Aminotransferase 18 IU/L (<35); Albumin 4.2 g/dL (3.5-5.0); Albumin Globulin Ratio 1.9 (1.0-2.8); Alkaline Phosphatase 56 U/L (38-126); Aspartate Aminotransferase 22 IU/L (14-36); BUN Creatinine Ratio 26.3 (6-22); Bilirubin Total 0.5 mg/dL (0.2-1.3); Blood Urea Nitrogen 20 mg/dL (7-17); Calcium 9.3 mg/dL (8.4-10.2); Carbon Dioxide 26 mmol/L (22-32); Chloride 105 mmol/L (98-107); Estimated Glomerular Filt Rate > 60 mL/min (>60); Globulin 2.2 g/dL (1.7-4.1); Glucose 89 mg/dL (80-110); HEMOLYSIS < 15 (0-50); Potassium 4.3 mmol/L (3.4-5.1); Sodium 138 mmol/L (137-145); Total Protein 6.4 g/dL (6.3-8.2)
== END ==
PROVIDERS: PCP Internal Medicine; Referring Provider Internal Medicine Hematology & Oncology; Visit Provider Internal Medicine Hematology & Oncology
DX: Z51.11 Encounter for antineoplastic chemotherapy (principal); C91.10 Chronic lymphocytic leukemia of B-cell type not having achieved remission
CPT/HCPCS: 36415; 80053; 85025

== ENCOUNTER → 2023-05-10 13:42 | Outpatient (CLI) | payer OTHER, SELFPAY ==
[2023-05-10 14:27] LABS: Hematocrit 38.6 % (36-46); Mean Corpuscular HGB Conc 33.6 % (30-36); Mean Corpuscular Volume 95.1 fL (80-100); Platelet Count 158 X10^3/uL (150-400); Red Blood Cell Count 4.06 X10^6/uL (4.0-5.2); Red Cell Distribution Width 13.4 % (11.6-14.8); White Blood Cell Count 12.6 X10^3/uL (4.5-11.0)
[2023-05-10 14:28] LABS: Add Manual Diff / Slide Review YES
[2023-05-10 14:37] LABS: Neutrophils Absolute Manual 4158 /uL (3000-5900); RBC Morphology Normal Morphology; Total Cells Counted 100
[2023-05-10 14:45] LABS: Alanine Aminotransferase 26 IU/L (<35); Albumin 4.2 g/dL (3.5-5.0); Albumin Globulin Ratio 1.9 (1.0-2.8); Alkaline Phosphatase 59 U/L (38-126); Aspartate Aminotransferase 25 IU/L (14-36); Bilirubin Total 0.4 mg/dL (0.2-1.3); Blood Urea Nitrogen 19 mg/dL (7-17); Calcium 9.2 mg/dL (8.4-10.2); Carbon Dioxide 30 mmol/L (22-32); Chloride 108 mmol/L (98-107); Estimated Glomerular Filt Rate > 60 mL/min (>60); Globulin 2.2 g/dL (1.7-4.1); Glucose 86 mg/dL (80-110); HEMOLYSIS < 15 (0-50); Potassium 4.3 mmol/L (3.4-5.1); Sodium 141 mmol/L (137-145); Total Protein 6.4 g/dL (6.3-8.2)
[2023-05-12 06:09] LABS: Immunoglobulin G, Quantitative 228 mg/dL (586-1602)
== END ==
PROVIDERS: PCP Internal Medicine; Referring Provider Internal Medicine Hematology & Oncology; Visit Provider Internal Medicine Hematology & Oncology
DX: C91.10 Chronic lymphocytic leukemia of B-cell type not having achieved remission (principal)
CPT/HCPCS: 36415; 80053; 82784; 85007; 85025

== ENCOUNTER → 2023-06-21 12:03 | Outpatient (CLI) | payer MEDICARE, SELFPAY ==
[2023-06-21 12:58] LABS: Add Manual Diff / Slide Review NO; Basophils Absolute Auto 0 /uL (0-100); Basophils Percent Auto 0.3 % (0-2); Eosinophils Absolute Auto 0 /uL (0-450); Eosinophils Percent Auto 0.3 % (2-4); Hematocrit 39.5 % (36-46); Hemoglobin 13.1 g/dL (12.0-16.0); Lymphocytes Absolute Auto 7100 /uL (1100-4500); Lymphocytes Percent Auto 59.2 % (25-40); Mean Corpuscular HGB Conc 33.2 % (30-36); Mean Corpuscular Volume 96.5 fL (80-100); Monocytes Absolute Auto 800 /uL (0-900); Monocytes Percent Auto 6.8 % (3-14); Neutrophils Absolute Auto 4000 /uL (1500-7000); Neutrophils Percent Auto 33.4 % (50-75); Platelet Count 159 X10^3/uL (150-400); Red Blood Cell Count 4.09 X10^6/uL (4.0-5.2); Red Cell Distribution Width 13.4 % (11.6-14.8); White Blood Cell Count 11.9 X10^3/uL (4.5-11.0)
[2023-06-21 13:23] LABS: Alanine Aminotransferase 17 IU/L (<35); Albumin 4.3 g/dL (3.5-5.0); Albumin Globulin Ratio 2.5 (1.0-2.8); Alkaline Phosphatase 68 U/L (38-126); Aspartate Aminotransferase 20 IU/L (14-36); BUN Creatinine Ratio 30.8 (6-22); Bilirubin Total 0.5 mg/dL (0.2-1.3); Blood Urea Nitrogen 16 mg/dL (7-17); Calcium 9.4 mg/dL (8.4-10.2); Carbon Dioxide 30 mmol/L (22-32); Chloride 106 mmol/L (98-107); Estimated Glomerular Filt Rate > 60 mL/min (>60); Globulin 1.7 g/dL (1.7-4.1); Glucose 88 mg/dL (80-110); HEMOLYSIS < 15 (0-50); Potassium 4.2 mmol/L (3.4-5.1); Sodium 139 mmol/L (137-145)
== END ==
PROVIDERS: PCP Internal Medicine; Referring Provider Internal Medicine Hematology & Oncology; Visit Provider Internal Medicine Hematology & Oncology
DX: C91.10 Chronic lymphocytic leukemia of B-cell type not having achieved remission (principal)
CPT/HCPCS: 36415; 80053; 85025

== ENCOUNTER → 2024-01-31 11:27 | Outpatient (CLI) | payer MEDICARE, SELFPAY ==
--- NOTE | 2024-01-31 11:28 | DI.RAD.S_ITS ---
PROCEDURE: XR DEXA AXIAL SKELETON INDICATIONS: Age-related osteoporosis without current pathologi COMPARISON: [facility], , XR DEXA AXIAL SKELETON, 10/10/2021, 11:37. FINDINGS: Lumbar Spine: Bone mineral density 0.838 g/cm2, T score -1.9, compared to -1.7. Left Hip: Bone mineral density 0.704 g/cm2, T score -2.0, compared to -1.9. Left Femoral Neck: Bone mineral density 0.533 g/cm2, T score -2.8, compared to -2.7. Right Hip: Bone mineral density 0.664 g/cm2, T score -2.3, unchanged. Right Femoral Neck: Bone mineral density 0.521 g/cm2, T score -3.0, compared to -2.8. Fracture Risk Calculation (when applicable): 10-year fracture risk of a major osteoporotic fracture 17 percent and of a hip fracture 5.6 percent. (T score greater or equal to -1.0 to: NORMAL) (T score from -1.1 to -2.4: OSTEOPENIA) (T score less than or equal to -2.5: OSTEOPOROSIS) IMPRESSION: Osteoporosis in the femoral necks bilaterally minimally progressive. Moderate to severe osteopenia within the left and right hips as well as spine minimally progressive overall. Follow-up guidelines as follows: Osteoporosis: Consider a repeat DEXA and Vertebral Fracture Assessment (VFA) exam in 2 years or sooner if medically necessary, to reassess this patient's status. Osteopenia: Consider a repeat DEXA in 2-3 years to reassess this patient's status, or if there is a new clinical indication. Normal: Consider a repeat DEXA in 5 years or sooner, or if there is a new clinical indication. All treatment decisions require clinical judgment and consideration of individual patient factors, including patient preferences, comorbidities, previous drug use, risk factors not captured in the FRAX model (e.g., frailty, falls, vitamin D deficiency, increased bone turnover, interval significant decline in bone density ) and possible under- or over-estimation of fracture risk by FRAX. In addition, the NOF Guide recommends that FDA-approved medical therapies be considered in postmenopausal women and men age >= 50 years with a: * Hip or vertebral (clinical or morphometric) fracture * T-score of <=-2.5 at the spine or hip * Ten-year fracture probability by FRAX of >= 3% for hip fracture or >=20% for major osteoporotic fracture. People with diagnosed cases of osteoporosis or at high risk for fracture should have regular bone mineral density tests. For patients eligible for Medicare, routine testing is allowed once every 2 years. The testing frequency can be increased to one year for patients who have rapidly progressing disease, those who are receiving or discontinuing medical therapy to restore bone mass, or have additional risk factors. Dictated by: Betty Yousif M.D. on 01/31/2024 at 16:34 Approved by: Betty Yousif M.D. on 01/31/2024 at 16:36
== END ==
PROVIDERS: PCP Internal Medicine; Referring Provider Internal Medicine; Visit Provider Internal Medicine
DX: M81.0 Age-related osteoporosis without current pathological fracture (principal)
CPT/HCPCS: 77080